=== PATIENT | female | born 1935 | race Caucasian/White ===

== ENCOUNTER 2019-03-10 18:17 | Inpatient (IN) ==
--- NOTE | 2019-03-10 18:57 | PROVIDER DOCUMENTATION ---
This chart was entered by Juan David Gomez Scribe, acting as scribe for Mayank Bradford MD. HPI-General Adult - General Source: patient, EMS - History of Present Illness -Gen Adult Nature of Presenting Problems: Pt is a 83 yof who presents to the ED via EMS with a CC of difficulty breathing. Pt states that she became SOB prior to arrival and it worsened when she went outside into the heat. EMS reports that the pt stated that she forgot to take her medications this AM and took them when she remembered at approximately 1300. Pt also complains of lower back and knee pain. Location of Pain/Injury: reports: chest (Difficulty breathing) Pain Radiation: reports: no radiation Quality of Pain: reports: other (See HPI) Onset/Duration: reports: just prior to arrival Timing: reports: still present Context/Activities at Onset: reports: light activity, other (walking outside) Similar Symptoms Previously?: No Recently seen or treated by another doctor?: No <Mayank Bradford - Last Filed: 03/10/19 18:56> <Nadiya Musa - Last Filed: 03/10/19 20:49> - General Stated Complaint: DIFF. BREATHING Time Seen by Provider: 03/10/19 18:17 Allergies/Adverse Reactions: Patient Allergies Allergy/AdvReac Type Severity Reaction Status Date / Time Penicillins Allergy Mild ITCHING Verified 03/10/19 18:28 morphine AdvReac Unknown Verified 03/10/19 18:28 Home Medications: Home Medication List Medication Instructions Recorded Confirmed Last Taken Type Citalopram [Celexa] 20 mg PO DAILY 05/04/13 05/04/13 05/04/13 09:00 History Hydrocodone/Acetaminophen [Lortab 1 each PO TID #12 tablet 05/04/13 05/04/13 Unknown Rx 5-500 Tablet] Ibuprofen [Motrin] 800 mg PO Q8H PRN PRN #30 tablet 05/04/13 05/04/13 Unknown Rx Lisinopril [Zestril] 20 mg PO BID 05/04/13 05/04/13 05/04/13 08:00 History Metformin [Glucophage] 1,000 mg PO BID 05/04/13 05/04/13 05/04/13 08:00 History Tramadol [Ultram] 50 mg PO BID 05/04/13 05/04/13 05/04/13 09:00 History Review of Systems - Adult - REVIEW OF SYSTEMS - ADULT Constitutional: reports: see HPI. denies: chills, fever, fatique, night sweats, weight loss Eyes: reports: no symptoms reported Ears, Nose, Mouth & Throat: reports: no symptoms reported Cardiovascular: reports: no symptoms reported Respiratory: reports: see HPI, dyspnea on exertion, shortness of breath. denies: chronic cough, cough, excessive sputum production, hemoptysis Gastrointestinal: reports: no symptoms reported Genitourinary: reports: no symptoms reported Musculoskeletal: reports: see HPI, back pain (Lower back), joint pain (Knee pain). denies: bone pain, frequent leg cramps, joint swelling, neck pain Integumentary: reports: no symptoms reported Neurological: reports: no symptoms reported Psychiatric: reports: no symptoms reported Endocrine: reports: no symptoms reported Hematologic/Lymphatic: reports: no symptoms reported Allergic/Immunologic: reports: no symptoms reported All Other Systems: Reviewed and Negative <Mayank Bradford - Last Filed: 03/10/19 18:56> Past History - Adult - PAST MEDICAL HISTORY-ADULT Review of Records: reports: Old Records Reviewed Major Childhood Illnesses: reports: denies history Cardiovascular: reports: denies history Respiratory: reports: denies history Gastrointestinal: reports: denies history Obstetrical/Gynecological: reports: denies history Genitourinary: reports: denies history Musculoskeletal: reports: denies history Neurological: reports: denies history Psychiatric: reports: depression Endocrine/Immune: reports: denies history Other Conditions: reports: denies history - PRIOR SURGERIES/PROCEDURES Surgical/Procedure History: reports: cholecystectomy, hysterectomy, tonsillectomy - IMMUNIZATION STATUS Childhood Immunizations: See Nurse Assessment Flu Vaccine: See Nurse Assessment - FAMILY HISTORY Family History: reviewed, not pertinent - SOCIAL HISTORY Smoking: denies, non-smoker Substance Use: none/never, denies Alcohol Use Frequency: never <Mayank Bradford - Last Filed: 03/10/19 18:56> Physical Exam-General - PHYSICAL EXAM-ADULT Initial Vital Signs Reviewed: Yes - CONSTITUTIONAL General Appearance: appears well, alert, no apparent distress - EYES Eyes: PERRL/EOMI. negative: meningismus, pale conjunctivae, photophobia - NECK Neck: non-tender, full range of motion. negative: C-spine tenderness, limited range of motion, lymphadenopathy, meningismus - RESPIRATORY Respiratory: chest non-tender, lungs clear, normal breath sounds. negative: accessory muscle use, crackles, rales, rhonchi, stridor, wheezing - CARDIOVASCULAR Cardiovascular: normal peripheral pulses, regular rate, rhythm, no edema, no gallop, no JVD, no murmur. negative: JVD, bradycardia, tachycardia, diastolic murmur, systolic murmur, gallop/S3, extra beats - GASTROINTESTINAL (ABDOMEN) Abdominal Exam: normal bowel sounds, non tender, soft. negative: rebound, tenderness, hernia, mass, hepatomegaly - MUSCULOSKELETAL Extremity: normal range of motion, non-tender. negative: deformity, erythema, inflammation, swelling, tenderness - SKIN Integumentary: normal color, normal turgor, warm/dry. negative: abrasion(s), blanching, jaundice, laceration(s), mottled, pallor - NEUROLOGIC Neurologic: grossly normal, no motor/sensory deficits. negative: abnormal rack carrier II-XII, abnormal gait, aphasia, EOM palsy, facial droop - PSYCHIATRIC Psych/Mental Status: normal mood/affect, normal thought content, normal thought process, oriented x 3. negative: disoriented x 3, anxious, disheveled, depressed affect, paranoid <Mayank Bradford - Last Filed: 03/10/19 18:56> Progress - EKG 1 Time of EKG reading by physician:: 18:28 EKG Read and Signed by:: Mayank Bradford EKG Interpretation (*Must complete 3 of following elements*): Abnormal Rate: 69 Rhythm: Sinus rhythm with AV dissociation and accelerated junctional rhythm. [place]: normal QRS: normal [place] Interval: normal Comments: ST & T wave abnormality, consider anterolateral ischemia; Abnormal ECG - CHANGE OF SHIFT REPORT (ED Provider) 1 Report Given and Care Transferred to:: NADIYA BURGOS Time of Transfer: 18:56 Items Pending: Labs, XRAY Results <Mayank Bradford - Last Filed: 03/10/19 18:56> - PLAN OF CARE/RESULTS Progress/Plan/Lab Results: Vital Signs - 8 hr 03/10/19 18:24 Temperature 98.1 F Pulse Rate 68 Respiratory Rate 20 Blood Pressure 160/79 O2 Sat by Pulse Oximetry 92 L Laboratory Results - last 24 hr 03/10/19 18:50 WBC 9.92 RBC 4.55 Hgb 12.4 Hct 38.1 MCV 83.7 MCH 27.3 MCHC 32.5 L RDW Std Deviation 14.3 Plt Count 252 MPV 9.8 Immature Gran % (Auto) 0.3 Neut % (Auto) 69.6 Lymph % (Auto) 11.3 L [place] % (Auto) 6.9 Eos % (Auto) 11.6 H Baso % (Auto) 0.3 Immature Gran # (Auto) 0.03 Neut # (Auto) 6.91 H Lymph # (Auto) 1.12 L [place] # (Auto) 0.68 H Eos # (Auto) 1.15 H Baso # (Auto) 0.03 Orders Category Date Time Status Cardiac Monitoring DIRECTED Care 03/10/19 18:41 Active Saline Loc NOW Care 03/10/19 18:40 Active CHEST-PORTABLE [RAD] Stat Exams 03/10/19 18:39 Ordered CBC WITH ELECTRONIC DIFF [HEME] Stat Lab 03/10/19 18:50 Completed CK PROFILE [SP CHEM] Stat Lab 03/10/19 18:50 Received COMPREHENSIVE METABOLIC PANEL [CHEM] Stat Lab 03/10/19 18:50 Received FREE T4 Stat Lab 03/10/19 18:50 Received MAGNESIUM [CHEM] Stat Lab 03/10/19 18:50 Received PRO B-NATRIURETIC PEPTIDE Stat Lab 03/10/19 18:50 Received TROPONIN T Stat Lab 03/10/19 18:[address] W/POSS RFLX CULT [URINALYSIS] Stat Lab 03/10/19 18:39 Uncollected Result Diagrams: 03/10/19 18:50 03/10/19 18:50 - REASSESSMENT Reassessment #1 Time Reassessed: 19:07 (EVALUATED PT WHO CURRENTLY DENIES SYMPTOMS AT THIS TIME. SHE IS COMFORTABLE DENIES CP AND SOB AT THIS TIME. UPDATED ON LABS AND PT IS AN AGREEMENT WITH PLAN DISCUSSED WITH MD BRADFORD) Status: unchanged - XRAY 1 XRAY Study: Chest Impression: See EMR Report (EXAM: CHEST-PORTABLE INDICATION: sob TECHNIQUE: One view COMPARISON: 11/12/2012 FINDINGS: There is mild elevation of the right hemidiaphragm. The lungs are grossly clear. There is no discrete pleural fluid collection or pneumothorax. The cardiomediastinal silhouette and central vasculature are grossly unremarkable. IMPRESSION: No evidence of acute pathology by plain radiograph.) - CONSULTS/PCP/HOSPITALIST Notification #1 *Consult/PCP/Hospitalist*: DR QUINTERO Time Discussed: 20:48 Consult Disposition: Admit <Nadiya Musa - Last Filed: 03/10/19 20:49> Departure <Mayank Bradford - Last Filed: 03/10/19 18:56> - Departure Date of Disposition Decision: 03/10/19 Time of Disposition Decision: 20:48 Certified Medical Emergency: Emergent - Critical Care Note This patient required my direct & personal management of CC.: No <Nadiya Musa - Last Filed: 03/10/19 20:49> - Departure DIAGNOSIS: Shortness of breath Disposition: ADMITTED INPATIENT 09 Condition: Stable Referrals and Follow-Ups: None,PCP [Primary Care Provider] - Attestation - Physician/ ISMAEL Attestation The physician spent face to face time with patient:: Yes Advanced Practice Provider documentation review:: Supervising physician onsite and consulted in the evaluation and care of this patient. The physician did have a face to face encounter with the patient. <Mayank Bradford - Last Filed: 03/10/19 18:56> - Physician/ ISMAEL Attestation Patient care was provided by Advanced Practice Provider:: Yes Advanced Practice Provider:: Nadiya Musa Advanced Practice Provider documentation review:: The Mid-level provider documentation, treatment plan and medical decision making was reviewed by the physician who agrees with all treatment and medical decision making by the P. <Nadiya Musa - Last Filed: 03/10/19 20:49> This chart was documented by the indicated scribe, (Juan David Gomez Scribmary) and accurately reflects the services I performed and decisions made by me, Mayank Bradford MD, as attested by the provider's signature.
[2019-03-10 19:05] LABS: BASO# 0.03 X1000 (0.0-0.2); BASO% 0.3 % (0.0-0.8); EOS# 1.15 X1000 (0.0-0.7); EOS% 11.6 % (0.0-10.0); HEMATOCRIT 38.1 % (37.0-47.0); HEMOGLOBIN 12.4 g/dL (12.0-16.0); IMM GRAN# 0.03 X1000 (0.0-0.04); IMM GRAN% 0.3 % (0.0-0.5); LYMPH# 1.12 X1000 (1.2-3.4); LYMPH% 11.3 % (20.5-51.1); MCH 27.3 PG (27-31); MCHC 32.5 g/dL (33-37); MCV 83.7 FL (81-99); MONO# 0.68 X1000 (0.11-0.59); MONO% 6.9 % (1.7-9.3); MPV 9.8 FL (7.4-10.4); NEUT# 6.91 X1000 (1.4-6.5); NEUT% 69.6 % (42.2-75.2); PLT 252 X1000 (130-400); RBC 4.55 XMIL (4.2-5.4); RDW 14.3 % (11.5-14.5); WBC 9.92 X1000 (4.8-10.8)
[2019-03-10 19:25] LABS: ALBUMIN 3.8 g/dL (3.5-5.0); CALCIUM 8.6 mg/dL (8.8-10.2); CREATININE 0.9 mg/dL (0.5-0.9); POTASSIUM 4.7 mmol/L (3.5-5.1); TOTAL BILIRUBIN 0.4 mg/dL (0.20-1.00); TOTAL PROTEIN 6.8 g/dL (6.3-8.3)
[2019-03-10 19:26] LABS: MAGNESIUM 1.3 mg/dL (1.5-2.7)
--- NOTE | 2019-03-10 20:27 | Diag Imaging Result Doc PS360 ---
EXAM: CHEST-PORTABLE INDICATION: sob TECHNIQUE: One view COMPARISON: 11/12/2012 FINDINGS: There is mild elevation of the right hemidiaphragm. The lungs are grossly clear. There is no discrete pleural fluid collection or pneumothorax. The cardiomediastinal silhouette and central vasculature are grossly unremarkable. IMPRESSION: No evidence of acute pathology by plain radiograph. Electronically signed by Mika Clifton 03/10/2019 8:25 PM
[2019-03-10] MEDS ORDERED: LASIX IV ONE (20:48)
[2019-03-11] MEDS ORDERED: LASIX IV ONE (00:30)
[2019-03-11 02:38] LABS: BILIRUBIN URINE NEGATIVE (NEGATIVE); BLOOD URINE NEGATIVE (NEGATIVE); CLARITY CLEAR (CLEAR); COLOR STRAW; GLUCOSE URINE NEGATIVE (NEGATIVE); KETONE URINE NEGATIVE (NEGATIVE); LEUKOCYTES URINE NEGATIVE (NEGATIVE); NITRITE URINE NEGATIVE (NEGATIVE); PH URINE 6.5; PROTEIN URINE NEGATIVE (NEGATIVE); UROBILINOGEN URINE NORMAL
[2019-03-11 02:46] LABS: URINE BACTERIA 1+ /HFP; URINE CAST NONE SEEN /LPF; URINE CRYSTAL NONE SEEN /HPF; URINE EPITHELIAL CELLS <10 /HPF (<10); URINE RBC <10 /HPF (<10); URINE SOURCE CLEAN CATCH; URINE WBC NS /HPF (<10); URINE YEAST NONE SEEN /HPF
--- NOTE | 2019-03-11 06:55 | Diag Imaging Result Doc PS360 ---
EXAM: CT THORAX W/O CONTRAST HISTORY: shortness of breath TECHNIQUE: CT chest without contrast COMPARISON: None. FINDINGS: The right lobe of the thyroid contains a 3 cm hypodense cyst or nodule. No pleural effusions. No aortic aneurysm. Prominent atherosclerosis. There are calcified left hilar nodes with scattered granuloma. Mild increased interstitial markings in the lower right lung. No consolidation. No bronchiectasis. The right hemidiaphragm is elevated. Limited images through the upper abdomen reveal a large left renal cyst measuring over 8 cm IMPRESSION: 1.Large nodule or cyst in the right lobe of the thyroid 2.Prominent atherosclerosis 3.Prior granulomatous infection 4.Atelectasis or scarring in the lower right lung 5.A preliminary report was given at 2:00 AM This exam was performed using automated exposure control, adjustment of mA or kV according to patient size, and/or use of iterative reconstruction technique. Electronically signed by Michael Helton 03/11/2019 6:53 AM
[2019-03-11] MEDS ORDERED: MAGNESIUM SULFATE 2 GM/S.W.I. 2 GM/50 ML IVPB IV ONE (10:10)
[2019-03-11] MEDS: GLUCOPHAGE PO SCH ×3 (10:20→17:45)
[2019-03-11] MEDS: CELEXA PO SCH (10:21)
[2019-03-11] MEDS: PRINIVIL PO SCH ×2 (10:21→21:22)
[2019-03-11] MEDS: LASIX IV SCH (10:21)
[2019-03-11] MEDS: HUMALOG (PARKWAY) SUBQ SCH ×3 (11:00→21:22)
--- NOTE | 2019-03-11 11:15 | HISTORY AND PHYSICAL ---
PRIMARY CARE PHYSICIAN: None. The patient's. CHIEF COMPLAINT: Shortness of breath. HISTORY OF PRESENT ILLNESS: This is an 83-year-old female that states that she had forgotten to take her morning dose of medications and upon going outside to do some outside work experienced shortness of breath that was severe and that she felt that she needed to go back in and take her medications around 1, but was having a hard time catching her breath and subsequently called EMS. The patient was admitted to the emergency room where she states her chief complaint was shortness of breath, back pain and knee pain. The patient was given Lasix 40 mg in the emergency room where she states that has helped alleviate any symptoms of shortness of breath. The patient's EKG done in the ER showed a sinus rhythm with ST and T-wave abnormalities, a rate at 69. The patient's CT of the chest without contrast showed no focal consolidation, indeterminate right thyroid nodule, no pleural effusions. Patient's chest x-ray showed no evidence of acute pathology by plain radiograph. The patient was admitted to the [facility] for admission for shortness of breath. PAST MEDICAL HISTORY: 1. Diabetes mellitus. 2. Depression. 3. Hypertension. 4. Chronic obstructive pulmonary disease. SURGICAL HISTORY: 1. Cholecystectomy. 2. Hysterectomy. 3. Tonsillectomy. 4. Knee surgery. 5. Unspecified ear surgery. 6. Cataract removal. FAMILY HISTORY: Patient states that her parents were significant for heart disease and cancer. SOCIAL HISTORY: Patient denies the use of alcohol, tobacco, or illicit drug use. The patient states that she lives at [facility]. ALLERGIES: Penicillin and morphine. MEDICATIONS ARE: To be reconciled but include Celexa 20 mg p.o. daily, lisinopril 20 mg b.i.d., and metformin 1000 mg p.o. b.i.d. REVIEW OF SYSTEMS: The patient denies fever, chills, or flu-like symptoms.HEENT: Patient denies congestion, headaches, vision changes, dizziness. Neck: There is no neck pain noted. Endocrine: Denies excessive thirst, urination, intolerance to heat or cold. Cardiovascular: Patient denies palpitations, chest pain. Positive for PND and shortness of breath on exertion. Respiratory: The patient states that she has shortness of breath with exertion. GI: Patient denies nausea or vomiting. Dysphagia, diarrhea, constipation. : Patient denies any urinary frequency, hematuria, or burning. Musculoskeletal: Patient states that she has low back and knee pain. Neuro: Patient denies dizziness, tremors, vertigo. Hematologic: No bruising. Psych: Patient states history of depression. Skin: No skin rashes noted. LABORATORY: The patient's WBC is 9.9, hemoglobin and hematocrit is 12.4 and 38.1. Chemistry: Sodium 137, potassium 4.7, chloride 102, creatinine is 0.9, glucose is 159, calcium is 8.6, mag is 1.3. ProBNP is 5685. Urine is negative for protein, ketones, blood, nitrites, WBC, +[address] chest x-ray and EKGs stated as above in HPI. PHYSICAL EXAM: VITAL SIGNS: Temperature 97.3 degrees, heart rate 58, respirations 18, blood pressure 162/74, 94% on room air. GENERAL: This is an 83-year-old female, well appearing. HEENT: Normocephalic, PERRLA. Mucous membranes moist. NECK: No lymphadenopathy noted. CARDIOVASCULAR: No murmurs, gallops, rubs. Rate and rhythm regular. RESPIRATORY: Lung sounds clear to auscultation bilaterally. Respirations nonlabored. GI: Abdomen nontender. Palpable times all 4 quadrants. NEURO: Cranial notes, nerves 2 through 12 intact. MUSCULOSKELETAL: 5/5 in all 4 extremities. EXTREMITIES: Extremities bilateral lower edema +1 to lower extremities. SKIN: Warm, dry, and intact. ASSESSMENT: 1. Shortness of breath. 2. Diabetes. 3. Hypertension. PLAN: 1. We will admit to [facility]. 2. Activity up ad luis carlos. 3. Daily weights and fasting blood sugar, Accu-Chek results with low-dose insulin protocol initiated. 4. Neuro checks p.r.n. 5. Vital signs routine. 6. We will monitor on telemetry with a heart healthy diet. Obtain echocardiogram. 7. Urine culture obtained. We will obtain a BMP and CBC in the a.m. 8. Resume all home medications when reconciled. 9. Further recommendations will be pending her clinical course and response to therapy. Dictated by LORETTA Melo for Ismael Howell MD Addendum: Patient seen and examined by myself. Agree with COMMUNITY CHEST OFFICER note. It reflects my assessment and plan. Patient is being admitted to hospital for possible CHF. Will continue with Lasix and will order an echocardiogram. Will monitor patient closely. cc: Ismael Howell MD MTDD
--- NOTE | 2019-03-11 23:48 | ECHO REPORT ---
ORDER DATE: 03/11/2019 MEASUREMENTS: Septal thickness 1.3, left ventricular internal diameter in diastole 4.0, posterior wall thickness 1.3, left ventricular internal diameter in systole 2.4, left atrium 3.9. Aortic root 3.2. SUMMARY: 1. Technically difficult study due to limited acoustic window quality. Intravenous echo contrast agent, Optison, was utilized to enhance endocardial definition. 2. Very mild sclerosis demonstrated. Aortic valve opening appears adequate. Peak gradient across aortic valve is less than 10 mmHg. Moderately heavy mitral annular calcification is demonstrated. Tricuspid valve is without evidence of structural abnormality with mild tricuspid regurgitation. Pulmonic valves not well demonstrated. The estimated systolic PA pressure by Doppler is 70 mmHg, suggesting moderate to severe pulmonary hypertension. Aortic root is normal size. 3. Normal left ventricular chamber size with mild concentric left hypertrophy is demonstrated. Estimated left ejection fraction approximately 70%. No regional wall motion abnormality is evident. Left atrium is mildly enlarged on 2-dimensional images. Right atrium and right ventricle are normal in size with normal right ventricular systolic function. 4. No pericardial effusion. 5. Appearance of inferior vena cava suggests normal central venous pressure. cc: Benjamin Tsang MD
[2019-03-12] MEDS: HUMALOG (PARKWAY) SUBQ SCH ×3 (06:04→16:32)
[2019-03-12 06:34] LABS: BASO# 0.03 X1000 (0.0-0.2); BASO% 0.3 % (0.0-0.8); EOS# 1.49 X1000 (0.0-0.7); EOS% 15.9 % (0.0-10.0); HEMATOCRIT 36.5 % (37.0-47.0); HEMOGLOBIN 11.9 g/dL (12.0-16.0); IMM GRAN# 0.02 X1000 (0.0-0.04); IMM GRAN% 0.2 % (0.0-0.5); LYMPH# 1.48 X1000 (1.2-3.4); LYMPH% 15.8 % (20.5-51.1); MCH 27.4 PG (27-31); MCHC 32.6 g/dL (33-37); MCV 83.9 FL (81-99); MONO# 0.74 X1000 (0.11-0.59); MONO% 7.9 % (1.7-9.3); MPV 9.9 FL (7.4-10.4); NEUT# 5.61 X1000 (1.4-6.5); NEUT% 59.9 % (42.2-75.2); PLT 258 X1000 (130-400); RBC 4.35 XMIL (4.2-5.4); RDW 14.1 % (11.5-14.5); WBC 9.37 X1000 (4.8-10.8)
[2019-03-12 08:07] LABS: HEMOGLOBIN A1C 6.6 % (4.8-6.0)
[2019-03-12 08:42] LABS: CALCIUM 8.6 mg/dL (8.8-10.2); CREATININE 0.9 mg/dL (0.5-0.9); MAGNESIUM 1.5 mg/dL (1.5-2.7); POTASSIUM 3.5 mmol/L (3.5-5.1)
--- NOTE | 2019-03-12 09:12 | EKG Report ---
Test Performed on : 03/10/2019 6:24:17 PM Test Reason : er Blood Pressure : / mmHG Vent. Rate : 069 BPM Atrial Rate : 069 BPM P-R Int : 000 ms QRS Dur : 074 ms QT Int : 452 ms P-R-T Axes : 033 028 001 degrees QTc Int : 484 ms Sinus rhythm. with AV dissociation. and Accelerated Junctional rhythm. ST & T wave abnormality, consider anterolateral ischemia Abnormal ECG No previous ECGs available Unconfirmed Result
--- NOTE | 2019-03-12 11:32 | PROGRESS NOTE ---
DATE: 03/12/2019 SUBJECTIVE: Patient reports feeling better. Mildly short of breath. OBJECTIVE: Vital Signs: Temperature 97.8 degrees, heart rate 62, respiratory rate 18, blood pressure 128/59 O2 saturation 96% on 2 L nasal cannula. General Examination: This is a chronically ill-appearing, 83-year-old female, lying in bed in no acute distress. HEENT: Head is normocephalic, atraumatic. Neck: No JVD noted. No carotid bruits. No lymphadenopathy. No thyromegaly. Cardiovascular exam: S1, S2 heard. No murmurs, gallops, or rubs. Regular rate and rhythm. Respiratory exam: Minimal coarse breath sounds noted in both pulmonary bases. Patient is not using any accessory muscles or having work of breathing. Abdomen: Soft, nontender to palpation. Nondistended. Bowel sounds present. No organomegaly. Extremities: Edema 2+ in both lower extremities. Peripheral pulses present in both legs. Neurological exam: Patient alert and oriented x3. Moves 4 extremities. LABORATORY DATA: White cell count 9.37, hemoglobin 11.9, hematocrit 36.5, platelets 258. BMP unremarkable with hemoglobin A1c 6.6, magnesium 1.5. Pro BMP at admission was 5685. X-RAY DATA: CT of the chest showed atelectasis or scaring in the lower right lung with prior granulomatosis infection, prominent arteriosclerosis. Echocardiogram showed normal left ventricle chamber size with ejection fraction 70%. There is moderate to severe pulmonary hypertension. ASSESSMENT AND PLAN: 1. New onset dyspnea on exertion. The patient was admitted basically for this condition. CT of the chest and echocardiogram results as above. Considering this, a new finding of severe pulmonary hypertension plus those findings in the CT of the chest, I prefer to send this patient to [facility] to have a pulmonary and cardiology evaluation and see if further workup is needed. At this point, because of the elevated proBNP, will continue with the Lasix, in this case 40 mg q. 24 hours. 2. Diabetes mellitus type 2. We will continue with sliding scale insulin. Accu-Chek before meals and also at bedtime. 3. Hypertension. Blood pressure is under control. We will continue with the same management. 4. Acute hypoxemic respiratory failure. At this point, patient is requiring 2 L of oxygen. 5. Disposition: Patient is going to [facility] for further evaluation by Cardiology and Pulmonary. cc: Ismael Howell MD
[2019-03-12] MEDS: GLUCOPHAGE PO SCH ×2 (11:46→16:38)
[2019-03-12] MEDS: CELEXA PO SCH (11:46)
[2019-03-12] MEDS: LASIX IV SCH (11:46)
[2019-03-12] MEDS: PRINIVIL PO SCH ×2 (11:46→21:30)
--- NOTE | 2019-03-12 13:45 | CARDIOLOGY CONSULTATION ---
DATE: 03/12/2019 CHIEF COMPLAINT: Shortness of breath. HISTORY OF PRESENT ILLNESS: Ms Albrecht is an 83-year-old, white female with a history of diabetes, hypertension, COPD. She presented for evaluation of shortness of breath. She is a somewhat difficult historian but is sounds like it has been going on for around a week or so. The shortness of breath would occurred with any activities over walking around in a room. She uses a walker for ambulation. She denies any chest pain occurring with those episodes. She has had no episodes of orthopnea. She denies any lower extremity edema. PAST MEDICAL HISTORY: Significant for: 1. Diabetes. 2. Hypertension. 3. COPD. SOCIAL HISTORY: She lives at [facility]. No current alcohol, tobacco or illicit drug use. She denies previous tobacco use. She apparently lived for a number of years with a smoker. FAMILY HISTORY: Significant for heart disease as well as some forms of cancer. REVIEW OF SYSTEMS: A 10 system review of systems is negative except for those as mentioned in the HPI. PHYSICAL EXAMINATION: Vital signs: Afebrile, heart rate is 62, blood pressure 127/50. Her initial blood pressures on presentation were in the 160s to 190s systolic. General: She is in no acute distress. HEENT: Oropharynx is moist. Poor dentition. Eye examination shows pink conjunctivae, white sclerae. Neck: No obvious thyromegaly or thyroid tenderness. Cardiovascular: She sounds to be in a regular rate and rhythm. She has no obvious murmurs. She has no S3. She has no lower extremity edema. Chest: Sounds clear bilaterally. She has no increased work of breathing. She has poor inspiratory effort. Abdomen: Soft, nontender, nondistended. She has no obvious organomegaly. Skin: Warm and dry throughout without any rashes. Neurological: She is moving all extremities well. She has no lateralizing deficits. Psychiatric: Alert, oriented and pleasant. Normal mood and affect. PERTINENT DATA: Her ejection fraction is 70%. RV systolic pressure was 70 on an echo. She only had mild tricuspid regurgitation. The right atrium and the right ventricle appeared to be normal with normal systolic function. She had an EKG occurring on the 1st showing sinus rhythm, nonspecific ST-T changes. Her telemetry has not been remarkable for any significant arrhythmias. She had a chest CT demonstrating a large thyroid nodule, prominent atherosclerosis, atelectasis or scarring in the lower right lung. LABORATORY DATA: Demonstrates white count of 9.3, hematocrit 36, platelet count is 258,000. Sodium 136, potassium 3.5, BUN 18, creatinine 0.9. Her albumin level on presentation was 3.8. ProBNP 5685. ASSESSMENT: Ms. Albrecht is an 83-year-old female who presents for shortness of breath. PLAN: She likely has a combination of diastolic heart failure and probable right-sided heart failure. She seems to be doing overall better today. I agree with the addition of a diuretic. Her blood pressure is much better today but was markedly elevated on presentation. For now, I would recommend continuing on the HAI inhibitor and likely transitioning over to the addition of an oral diuretic at the time of discharge. We would be happy to see the patient as follow up at home, at which time we could likely pursue an ischemia evaluation if need be. Most likely, her etiology of her pulmonary hypertension is a combination of diastolic failure as well as probable lung disease. She does have LVH noted on her echo. cc: Ash Garcia MD
[2019-03-12 15:49] LABS: ALLEN TEST NO; BE 2.8 mmoll (-3.0-3.0); BLOOD TYPE ARTERIAL; HCO3-(ACT) 26.9 mmoll (20.0-26.0); METHB 0.5 % (0.0-1.5); O2(CT) 15.6 mL/dL (15.0-23.0); PCO2(98.6) 35 mmHg (35-45); SAMPLE BLOOD; SAO2 90.8 % (95.0-100.0); THB 12.6 g/dL (11.5-17.4); pH(98.6) 7.48 (7.35-7.45)
[2019-03-12 15:53] LABS: MODALITY CANNULA
[2019-03-12 15:55] LABS: O2HB 88.3 % (95.0-99.0); PO2(98.6) 49 mmHg (60-100)
[2019-03-12] MEDS ORDERED: VENTOLIN HFA INH ONE (19:29)
--- NOTE | 2019-03-12 21:34 | PULMONOLOGY CONSULTATION ---
DATE: 03/12/2019 HISTORY OF PRESENT ILLNESS: Ms. Albrecht is an 83-year-old white female who is a slightly difficult historian due to tangential thinking. The patient was brought to the emergency room after she developed shortness of breath at the facility in which she lives. The patient reports she has had intermittent diarrhea for the last week and this is exacerbated by eating oatmeal. She does not have diarrhea with eating grits. She also reports intermittent vomiting over the last 6 months, but this was a vague history. The patient did receive Lasix in the Emergency Room with improvement in her dyspnea. The patient reports she had allergies as a child, which persisted into adulthood. She had attempted Flonase in the past, but this "burned her nose severely." She denies prior allergy injections. She denies prior bronchodilators. PAST MEDICAL HISTORY: Problem list: 1. Allergic rhinitis, with intermittent wheezing. 2. Diabetes mellitus. 3. Hypertension. 4. Depressive disorder. 5. Status post hysterectomy. 6. Status post cholecystectomy. 7. Status post knee surgery. 8. Status post cataract surgery. FAMILY HISTORY: Father with heart disease and mother with bladder cancer. SOCIAL HISTORY: 1. She is a never smoker. She denies alcohol use. REVIEW OF SYSTEMS: 1. Is tangential as per above. She reports long history of allergies. She reports intermittent aches and pains. She has intermittent diarrhea for the last week, but none since hospitalization. 2. Intermittent vomiting, as per above. PHYSICAL EXAMINATION: General: Reveals a well-developed, well-nourished female on nasal cannula, resting comfortably, in no distress. Vital Signs: Blood pressure 150/49, heart rate 69, respiratory rate 20. Oxygen saturation 96% on nasal cannula. HEENT: Pupils are equal and reactive. Oropharynx appears clear. Neck: Supple. Chest: Reveals crackles in the lung bases. Mild prolonged expiratory phase. Cardiac: S1, S2. Abdomen: Obese and soft. Extremities: Reveal 1+ peripheral edema. LABORATORIES: CT scan of the thorax reveals prominent atherosclerosis, scarring in the right lower lobe, prior granulomatous disease, a large nodule in the right lobe of the thyroid measuring 3 cm with mild elevation of the right hemidiaphragm. Echocardiogram reveals PA systolic pressure of 70, with a normal left ventricle. White blood count 9.37, hemoglobin 11.9, platelet count 258,000, significant eosinophil percentage at 15.9%, with a total eosinophi. count of 1490. IMPRESSION: An 83-year-old with: 1. Dyspnea on exertion. 2. Pulmonary hypertension with normal ejection fraction. 3. Asthma with prior history of allergies, wheezing, and significant eosinophilia. 4. Acute cor pulmonale. 5. Acute hypoxemic respiratory failure with a PO2 of 49, on 2 L per nasal cannula. 6. Mild obesity. RECOMMENDATIONS: 1. Add low-dose diuretic to her hypertensive regimen. 2. Add albuterol bronchodilator trial to see if this decreases her dyspnea. 3. Recommend Symbicort low-dose at the time of discharge. 4. Evaluate for oxygen at the time of discharge. Given her age, elevated right hemidiaphragm, mild obesity she may require chronic oxygen therapy. cc: Collins Jackson MD
[2019-03-12] MEDS: VENTOLIN HFA INH SCH (22:14)
[2019-03-13] MEDS: VENTOLIN HFA INH SCH ×4 (03:45→21:20)
[2019-03-13] MEDS: HUMALOG SUBQ SCH ×5 (04:33→20:58)
[2019-03-13] MEDS: SYMBICORT 80/4.5 MICROGM INHALER INH SCH ×2 (07:55→21:20)
[2019-03-13] MEDS: GLUCOPHAGE PO SCH ×2 (08:14→17:15)
[2019-03-13] MEDS: HYDROCHLOROTHIAZIDE PO SCH (08:14)
[2019-03-13] MEDS: CELEXA PO SCH (08:14)
[2019-03-13] MEDS: PRINIVIL PO SCH ×2 (08:14→20:55)
[2019-03-13] MEDS: LASIX IV SCH (08:14)
--- NOTE | 2019-03-13 16:31 | PROGRESS NOTE ---
DATE: 03/13/2019 SUBJECTIVE: A very pleasant lady. She feels like she is breathing a bit better. OBJECTIVE: Vital Signs: Blood pressure is 122/56, heart rate of 81, respiratory rate 19, temperature 99 degrees, 92% on 3 L. Cardiovascular: Regular rate and rhythm. Pulmonary: Bilateral breath sounds. Clear to auscultation. GI: Soft, nontender, nondistended. Bowel sounds are positive. She has some rales at the bases. LABORATORY: I do not have any new lab data today. PROBLEM LIST: 1. Acute on chronic respiratory failure, likely due to pulmonary hypertension, cor pulmonale. Dr. Jackson and Dr. Garcia are following. At this point we feel it is probably likely cor pulmonale, pulmonary hypertension related to chronic lung disease. Dr. Jackson has made recommendations for medication management and home oxygen which we will start to work on setting that up. 2. Hypertension, aware. We will continue medications and follow. 3. Type 2 diabetes is overall stable and controlled. Will continue to monitor. DISPOSITION: Anticipate discharge hopefully soon to assisted living. We will continue to follow. Appreciate input. I think since she has got pulmonary hypertension she will need a right and left heart catheterization. I will defer that to Cardiology and follow. cc: Rodolfo Dumont MD
--- NOTE | 2019-03-13 18:22 | PULMONOLOGY PROGRESS NOTE ---
DATE: 03/13/2019 SUBJECTIVE: The patient is awake, alert, and conversant. She reports she got a bath this morning. She denies shortness of breath. OBJECTIVE: Vital Signs: Blood pressure 134/53, heart rate 88, respiratory rate 18, oxygen saturation 97% on nasal cannula. HEENT: Pupils are equal and reactive. Oropharynx appears clear. Neck: Supple. Chest: Reveals good air entry bilaterally without wheezing or rhonchi. Cardiac exam: S1-S2. Abdomen: Soft and without hepatosplenomegaly. Extremities: Without edema. LABORATORIES: No new chemistries, chest x-ray or CBC today. IMPRESSION: An 83-year-old with: 1. Dyspnea on exertion which has resolved. 2. Pulmonary hypertension. 3. Asthma. 4. Cor pulmonale. 5. Acute hypoxemia which may in fact be chronic. 6. Mild obesity. RECOMMENDATIONS: 1. Continue Symbicort and p.r.n. albuterol. 2. Continue hydrochlorothiazide. 3. Check room air arterial blood gas. 4. From a pulmonary standpoint, patient can be discharged on 03/14/2019, if okay with Cardiology. cc: Collins Jackson MD
[2019-03-14] MEDS: HUMALOG SUBQ SCH ×2 (06:06→11:23)
[2019-03-14] MEDS: VENTOLIN HFA INH SCH ×2 (06:07→08:46)
[2019-03-14 07:21] VITALS: BP 128/60
[2019-03-14 07:32] LABS: BASO# 0.03 X1000 (0.0-0.2); BASO% 0.3 % (0.0-0.8); EOS# 1.04 X1000 (0.0-0.7); EOS% 11.9 % (0.0-10.0); HEMATOCRIT 38.7 % (37.0-47.0); HEMOGLOBIN 12.6 g/dL (12.0-16.0); IMM GRAN# 0.02 X1000 (0.0-0.04); IMM GRAN% 0.2 % (0.0-0.5); LYMPH# 1.51 X1000 (1.2-3.4); LYMPH% 17.2 % (20.5-51.1); MCH 27.3 PG (27-31); MCHC 32.6 g/dL (33-37); MCV 83.8 FL (81-99); MONO# 0.67 X1000 (0.11-0.59); MONO% 7.6 % (1.7-9.3); MPV 9.6 FL (7.4-10.4); NEUT# 5.49 X1000 (1.4-6.5); NEUT% 62.8 % (42.2-75.2); PLT 247 X1000 (130-400); RBC 4.62 XMIL (4.2-5.4); RDW 14.1 % (11.5-14.5); WBC 8.76 X1000 (4.8-10.8)
[2019-03-14 07:47] LABS: CALCIUM 8.8 mg/dL (8.8-10.2); POTASSIUM 3.4 mmol/L (3.5-5.1)
[2019-03-14] MEDS: SYMBICORT 80/4.5 MICROGM INHALER INH SCH (08:48)
[2019-03-14] MEDS: GLUCOPHAGE PO SCH (09:54)
[2019-03-14] MEDS: PRINIVIL PO SCH (09:54)
[2019-03-14] MEDS: CELEXA PO SCH (09:54)
[2019-03-14] MEDS: HYDROCHLOROTHIAZIDE PO SCH (09:54)
[2019-03-14] MEDS ORDERED: KLOR-CON PO ONE (12:44)
[2019-03-14] MEDS ORDERED: MAGNESIUM SULFATE 2 GM/S.W.I. 2 GM/50 ML IVPB IV ONE (12:44)
--- NOTE | 2019-03-14 20:09 | DISCHARGE SUMMARY ---
ADMISSION DATE: 03/10/2019 DISCHARGE DATE: 03/14/2019 DISCHARGE DIAGNOSIS: 1. Cor pulmonale, acute with exacerbation and pulmonary edema. 2. Pulmonary hypertension likely related to chronic lung disease, right-sided heart failure. 3. Possible history of congestive heart failure. CONSULTATIONS: 1. Dr. Garcia, cardiology. 2. Dr. Jackson, pulmonology . Briefly, 83-year-old female presenting with shortness of breath. Initially she was at [facility]. She has been on Lasix. CT really showed some overload kind of issues. She was dyspneic and somewhat hypoxic. She was managed 1st day or 2 at [facility] but with persistent dyspnea on exertion and CT findings were concerning over pulmonary hypertension which was felt to be moderate to severe felt that cardiology and pulmonology were needed for continued treatment. Dr. Garcia evaluated her felt she had some diastolic dysfunction and right-sided heart failure and continuing HAI inhibitor and oral diuretic and Dr. Jackson evaluated her, recommended low-dose diuretic, albuterol, Symbicort. She had persistent hypoxia so she ended up qualifying for oxygen. On the she was stable. Saturations were 93 on 3 L. Afebrile. Lungs were clear and she was felt stable for discharge. DISCHARGE MEDICATIONS: Celexa 20, atenolol 100 daily that was a old medication, lisinopril 20 b.i.d., metformin 5 b.i.d., I am going to give her Lasix 20. [address] Jackson ordered hydrochlorothiazide. I am just concerned about that with hyponatremia, although any diuretic puts her puts her at risk for that but will just do Lasix 20 daily and also the Symbicort he ordered. DISPOSITION: She was felt stable for discharge. We did set up oxygen. She will follow up with a education program coordinator. As workup pulmonary hypertension I think she needs a right and left heart catheterization and he will coordinate that as an outpatient for evaluation for that. cc: Rodolfo Dumont MD
== END 2019-03-14 16:02 | disposition home health service (06) | DRG 316 ==
LOC: P.ED 18:17 → SUATTDRO 23:51 → P.MEDSURG 23:51 → 3N 03-12 14:01
PROVIDERS: ATTEND Internal Medicine
CPT/HCPCS: 71010; 71045; 71250; 80048; 80053; 81001; 82550; 82805; 82948; 83036; 83735; 83880; 84439; 84484; 85025; 87088; 93005; 93306; 94640; 94761; 96374; 99285; A9270; C8929; J1815; J1940; J3475; Q9957; XXXXX